=== PATIENT | male | born 1980 | race Caucasian/White ===

== ENCOUNTER 2016-07-07 17:46 | Emergency (ER) | payer SELFPAY ==
--- NOTE | 2016-07-13 08:46 | ER ---
ADMIT: 07/07/2016 RM/LOC: ER [facility] MR#: [id number] [address] [facility] [id number] [place] [address] Emergency Room Report SEX: M AGE: 36 : 1980 DATE: 07/07/2016 This is a 36-year-old gentleman brought in to the Emergency Department by squad after he had a seizure. He has a history of seizures. He also drinks heavily. He said his last drink was approximately a week ago. He is normally on Dilantin, but has not been taking it because he could not afford it. See T- sheet for history and physical. The patient does have an abrasion on his tongue. He is diagnosed with seizures. He is given Keppra in the Emergency Department, prescription for Keppra. Instructed to follow up with his doctor this week and to stop drinking alcohol. Mo Villalobos MD/ carmen JOB #: [id number] CC: Odell Hernandez MD, Attending Physician Jugn Hernandez MD, Family Physician
== END 2016-07-07 19:20 | disposition home or self-care (01) ==
LOC: ER 17:46
DX: G40.909 Epilepsy, unspecified, not intractable, without status epilepticus (principal)